=== PATIENT | male | born 1980 | race Caucasian/White ===

== ENCOUNTER 2017-01-25 03:05 | Emergency (ER) | payer BC ==
[2017-01-25 03:09] VITALS: BP 129/85; PULSE 78; O2SAT 97
[2017-01-25] MEDS ORDERED: solu-MEDROL 125 MG IV ONE (03:09)
[2017-01-25] MEDS ORDERED: BENADRYL 50 MG/ML IV ONE (03:09)
[2017-01-25] MEDS ORDERED: BENADRYL 50 MG/ML ONE (03:13)
[2017-01-25] MEDS ORDERED: solu-MEDROL 125 MG ONE (03:13)
--- NOTE | 2017-01-25 03:13 | ERPHSYRPT ---
- History of Present Illness Time Seen by Provider: 01/25/17 03:07 Source: patient Exam Limitations: no limitations Physician History: AT 0220 TODAY PT STARTED WITH TONGUE SWELLING, CHEST TIGHTNESS, HIVES AND SHORTNESS OF AIR. Allergies/Adverse Reactions: Penicillins Allergy (Unknown, Verified 10/04/14 09:50) Hx Tetanus, Diphtheria Vaccination/Date Given: Yes (2011) Hx Influenza Vaccination/Date Given: No Hx Pneumococcal Vaccination/Date Given: No - Review of Systems Ears, Nose, & Throat: Other (TONGUE EDEMA) Respiratory: Dyspnea Cardiac: Other (CHEST TIGHTNESS) Skin: Other (HIVES) All Other Systems: Reviewed and Negative - Past Medical History Pertinent Past Medical History: No Neurological History: No Pertinent History ENT History: No Pertinent History Cardiac History: Hypertension Respiratory History: No Pertinent History Endocrine Medical History: No Pertinent History Musculoskeletal History: No Pertinent History GI Medical History: No Pertinent History History: No Pertinent History Psycho-Social History: No Pertinent History Male Reproductive Disorders: No Pertinent History - Past Surgical History Past Surgical History: Yes Neuro Surgical History: No Pertinent History Cardiac: No Pertinent History Respiratory: No Pertinent History Gastrointestinal: Appendectomy Genitourinary: No Pertinent History Musculoskeletal: No Pertinent History Male Surgical History: No Pertinent History - Social History Smoking Status: Never smoker Exposure to second hand smoke: Yes Drug Use: none Patient Lives Alone: Yes - Nursing Vital Signs Nursing Vital Signs: Initial Vital Signs Temperature 98.7 F Temperature Source Oral Pulse Rate 78 Respiratory Rate 22 Blood Pressure [Right Arm] 129/85 Pain Intensity 0 - Physical Exam General Appearance: alert, anxiety Eye Exam: PERRL/EOMI Ears, Nose, Throat Exam: TMs normal, pharynx normal, moist mucous membranes, other (TONGUE MILDLY EDEMATOUS) Neck Exam: normal inspection Respiratory Exam: lungs clear Cardiovascular Exam: normal heart sounds Gastrointestinal/Abdomen Exam: soft, normal bowel sounds Back Exam: normal range of motion Extremity Exam: No pedal edema Neurologic Exam: alert, cooperative Skin Exam: other (HIVES OVER TRUNK) SpO2 Interpretation: normal SpO2: 97 Oxygen Delivery: Room Air - Course Nursing assessment & vital signs reviewed: Yes Ordered Tests: Active Orders 24 hr Category Date Time Status IV Insertion STAT Care 01/25/17 03:09 Active Medication Summary Discontinued Medications Generic Name Dose Route Start Last Admin Trade Name Freq PRN Reason Stop Dose Admin Diphenhydramine HCl 50 mg 01/25/17 03:09 01/25/17 03:14 Benadryl 50 Mg/Ml IV 01/25/17 03:10 50 mg STAT ONE Administration Diphenhydramine HCl Confirm 01/25/17 03:13 Benadryl 50 Mg/Ml Administered 01/25/17 03:14 Dose 50 mg .ROUTE .STK-MED ONE Methylprednisolone Sodium Succinate 125 mg 01/25/17 03:09 01/25/17 03:14 Solu-Medrol 125 Mg IV 01/25/17 03:10 125 mg STAT ONE Administration Methylprednisolone Sodium Succinate Confirm 01/25/17 03:13 Solu-Medrol 125 Mg Administered 01/25/17 03:14 Dose 125 mg .ROUTE .STK-MED ONE - Progress Progress Note: 01/25/17 03:51 HIVES IMPROVED - Departure Time of Disposition: 03:54 Departure Disposition: Home Clinical Impression: ALLERGIC REACTION, HIVES Condition: Stable Critical Care Time: No Instructions: Adverse Drug Reaction -- Allergic Additional Instructions: FOLLOW UP WITH PRIVATE DOCTOR TOMORROW. Prescriptions: Hydroxyzine HCl 25 mg [Atarax 25 mg] 25 mg PO Q4H PRN PRN #30 tablet PRN Reason: Allergies Methylprednisolone Packet [Medrol Dosepack] 4 mg PO UD #30 packet
== END 2017-01-25 04:00 | disposition home or self-care (01) ==
LOC: ED 03:05
DX: T78.40XA Allergy, unspecified, initial encounter (principal); L50.9 Urticaria, unspecified
CPT/HCPCS: 36000; 96374; 96375; 99283; 99285; J1200; J2930

== ENCOUNTER 2018-05-17 04:34 | Emergency (ER) | payer BC ==
[2018-05-17] MEDS ORDERED: IMOVAX RABIES VACCINE 2.5 UNITS IM (05:16)
[2018-05-17] MEDS ORDERED: Adacel Vial IM (05:55)
[2018-05-17] MEDS: Adacel Vial IM (05:57)
[2018-05-17] MEDS: Rabavert 2.5 UNITS IM (05:58)
[2018-05-17] MEDS: HYPERRAB S-D 1500 IU/10 ML VIAL IM (06:30)
== END 2018-05-17 06:49 | disposition home or self-care (01) ==
LOC: ED 04:34
CPT/HCPCS: 90375; 90471; 90675; 90715

== ENCOUNTER 2021-04-28 08:55 | Emergency (ER) | payer BC ==
--- NOTE | 2021-04-28 09:14 | ERPHSYRPT ---
- History of Present Illness Time Seen by Provider: 04/28/21 09:11 Source: patient Exam Limitations: no limitations Physician History: Patient is a 40-year-old male who presents with a complaint of facial pain and sinus infection. He has severe pressure especially at night or behind his eyes and nasal area he has fever to 102 at home and night sweats. This started on Thursday or at this is the third day. He has negative past medical history is on no medicines he has an allergy to penicillin but is unsure of his reaction. Timing/Duration: abrupt onset Severity: severe ENT Location: nose, facial Prearrival Treatment: over the counter meds (Ibuprofen) Modifying Factors: Improves With: lying down Associated Symptoms: cough, facial pain/swelling, headache, nasal congestion/drainage Allergies/Adverse Reactions: Penicillins Allergy (Unknown, Verified 04/28/21 09:14) states "unsure,happened when i was a kid" Hx Tetanus, Diphtheria Vaccination/Date Given: Yes (2011) Hx Influenza Vaccination/Date Given: No Hx Pneumococcal Vaccination/Date Given: No - Review of Systems Constitutional: Fever, Chills, Night Sweats Eyes: No Symptoms Ears, Nose, & Throat: Nose Congestion, Nose Discharge, Sinus Drainage Respiratory: Cough, No Dyspnea Cardiac: No Chest Pain, No Edema, No Syncope Abdominal/Gastrointestinal: No Abdominal Pain, No Nausea, No Vomiting, No Diarrhea Genitourinary Symptoms: No Dysuria Musculoskeletal: No Back Pain, No Neck Pain Skin: No Rash Neurological: No Dizziness, No Focal Weakness, No Sensory Changes Psychological: No Symptoms Endocrine: No Symptoms All Other Systems: Reviewed and Negative - Past Medical History Pertinent Past Medical History: No Neurological History: No Pertinent History ENT History: No Pertinent History Cardiac History: No Pertinent History Respiratory History: No Pertinent History Endocrine Medical History: No Pertinent History Musculoskeletal History: No Pertinent History GI Medical History: No Pertinent History History: No Pertinent History Psycho-Social History: No Pertinent History Male Reproductive Disorders: No Pertinent History - Past Surgical History Past Surgical History: Yes Neuro Surgical History: No Pertinent History Cardiac: No Pertinent History Respiratory: No Pertinent History Gastrointestinal: Appendectomy Genitourinary: No Pertinent History Musculoskeletal: No Pertinent History Male Surgical History: No Pertinent History - Social History Smoking Status: Never smoker Exposure to second hand smoke: Yes Drug Use: none Patient Lives Alone: Yes - Nursing Vital Signs Nursing Vital Signs: Initial Vital Signs Temperature 98.3 F 04/28/21 09:03 Pulse Rate 87 04/28/21 09:03 Respiratory Rate 18 04/28/21 09:03 Blood Pressure 154/96 04/28/21 09:03 O2 Sat by Pulse Oximetry 98 04/28/21 09:03 Pain Scale Pain Intensity 4 - Physical Exam General Appearance: mild distress, alert Eye Exam: bilateral eye: PERRL, EOMI Nasal Exam: discharge, sinus tenderness Throat Exam: pharynx normal, moist mucus membranes, No tonsillar exudate Neck Exam: supple Cardiovascular/Respiratory Exam: normal breath sounds, regular rate/rhythm Abdominal Exam: non-tender, soft Neurologic Exam: alert, oriented x 3, sensation nml, No motor deficits Skin Exam: normal color, warm, dry SpO2 Interpretation: normal O2 Delivery: Room Air - Course Nursing assessment & vital signs reviewed: Yes - Progress Progress: unchanged - Departure Departure Disposition: Home Clinical Impression: Sinusitis Condition: Stable Critical Care Time: No Instructions: Sinusitis, Adult (DC) Prescriptions: Cephalexin Mh 500 mg [Keflex 500 mg] 500 mg PO QID #40 cap
[2021-04-28 10:04] LABS: INFLUENZA A NEGATIVE (NEGATIVE); INFLUENZA B NEGATIVE (NEGATIVE); RESPIRATORY SYNCTIAL VIRUS NEGATIVE (Negative)
[2021-04-28] MEDS ORDERED: Rocephin 1000 MG INJ ONE (10:09)
[2021-04-28] MEDS: Rocephin 1000 MG INJ IM ONE ×2 (10:11→10:23)
[2021-04-28 10:21] LABS: SARS-CoV-2 Xpert Express POSITIVE (NEGATIVE)
[2021-04-28 11:11] VITALS: BP 142/78; PULSE 80; O2SAT 100
== END 2021-04-28 10:46 | disposition home or self-care (01) ==
LOC: ED 08:55
DX: U07.1 COVID-19 (principal); R51.9 Headache, unspecified; J32.9 Chronic sinusitis, unspecified
CPT/HCPCS: 0241U; 99283; J0696

== ENCOUNTER 2023-07-19 15:43 | Emergency (ER) | payer BC ==
[2023-07-19] MEDS ORDERED: Sodium Chloride 0.9% 1000 ML 1,000 ML ONE ×2 (15:46→21:13)
[2023-07-19] MEDS ORDERED: SUBLIMAZE 100 MCG/2 ML ONE (15:46)
[2023-07-19] MEDS ORDERED: Zofran 4 MG/2 ML VIAL ONE (15:46)
[2023-07-19] MEDS ORDERED: Hydromorphone 1 mg/ml Injection ONE ×5 (16:01→21:13)
[2023-07-19] MEDS ORDERED: Zofran 4 MG/2 ML VIAL IV ONE (16:04)
[2023-07-19] MEDS ORDERED: Hydromorphone 1 mg/ml Injection IV ONE ×5 (16:04→21:11)
[2023-07-19] MEDS ORDERED: Sodium Chloride 0.9% 1000 ML 1,000 ML IV STA (16:04)
[2023-07-19 16:28] LABS: Hematocrit 45.5 % (42-50); Hemoglobin 15.4 g/dL (12.5-18.0); Mean Cell Volume 89.6 fL (78-100); Mean Corpuscular Hemoglobin 30.3 pg (26-32); Mean Corpuscular Hgb Concent. 33.8 g/dL (32-36); Mean Platelet Volume 9.4 fL (7.5-11.0); Platelet Count 548 x10^3/uL (150-450); Red Blood Count 5.08 x10^6/uL (4.1-5.6); Red Cell Distribution Width 11.8 % (11.5-14.0)
[2023-07-19] MEDS ORDERED: SUBLIMAZE 100 MCG/2 ML IV ONE (16:31)
[2023-07-19 16:42] LABS: ALBUMIN 4.7 g/dL (3.5-5.0); ANION GAP 18.8 MEQ/L (5-15); BILIRUBIN,TOTAL 0.5 mg/dL (0.2-1.3); Calcium 9.1 mg/dL (8.4-10.2); Creatinine 1 1.07 mg/dL (0.66-1.25); EST GLOMERULAR FILTRATION RATE 88.9 ML/MIN; Potassium 3.5 mmol/L (3.5-5.1); Total Protein 7.9 g/dL (6.3-8.2)
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
[2023-07-19] MEDS ORDERED: Norflex 60 MG/2 ML ONE (20:09)
[2023-07-19] MEDS ORDERED: Norflex 60 MG/2 ML IV ONE (20:09)
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
[2023-07-19 20:25] LABS: Eosinophil 1 % (0.00-3.0); Lymphocytes 33 % (24-44); Monocyte 8 % (0.0-12.0); Neutrophils 58 % (36.-66.); Platelet Estimate INCREASED (NORMAL); Total Cells Counted 100
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
[2023-07-19 21:13] VITALS: BP 122/88; PULSE 89; RESP 18
[2023-07-19] MEDS ORDERED: Sodium Chloride 0.9% 1000 ML 1,000 ML IV SCH (21:15)
[2023-07-19 22:09] VITALS: O2SAT 98
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
== END 2023-07-19 21:25 | disposition short-term general hospital (02) ==
LOC: ED 15:43
DX: S42.291A Other displaced fracture of upper end of right humerus, initial encounter for closed fracture (principal); S16.1XXA Strain of muscle, fascia and tendon at neck level, initial encounter; V28.49XA Other motorcycle driver injured in noncollision transport accident in traffic accident, initial encounter
CPT/HCPCS: 36000; 36415; 70450; 71045; 71260; 72125; 73030; 73070; 74177; 76376; 80053; 83690; 84484; 85025; 93005; 96374; 96375; 96376; 99285; J1170; J2360; J2405; J3010; L0172